=== PATIENT | male | born 2000 | race Caucasian/White ===

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

== ENCOUNTER 2020-01-16 18:44 | Emergency (ER) | payer SELFPAY ==
[~2020-01-16] VITALS: Ht 188 cm; Wt 61.6 kg
[2020-01-16 18:47] VITALS: BP 120/66
[2020-01-16] MEDS ORDERED: DEXAMETHASONE 4 MG TABLET PO STA (19:10)
[2020-01-16] MEDS ORDERED: DEXAMETHASONE 4 MG TABLET ONE (19:18)
== END 2020-01-16 19:34 | disposition home or self-care (01) ==
LOC: ED 19:00
DX: J02.0 Streptococcal pharyngitis (principal)
CPT/HCPCS: 99283

== ENCOUNTER 2021-05-16 01:01 | Emergency (ER) | payer MEDICAID ==
[~2021-05-16] VITALS: Ht 193 cm; Wt 60.1 kg
[2021-05-16] MEDS ORDERED: ONDANSETRON 2MG/ML, 2ML ONE (01:55)
[2021-05-16] MEDS ORDERED: KETOROLAC 30 MG/1 ML ONE (01:55)
[2021-05-16] MEDS ORDERED: KETOROLAC 30 MG/1 ML IVPush ONE (02:00)
[2021-05-16] MEDS ORDERED: SODIUM CHLORIDE 0.9% 1,000ML IVBOLUS ONE (02:00)
[2021-05-16] MEDS ORDERED: ONDANSETRON 2MG/ML, 2ML IVPush ONE (02:00)
--- NOTE | 2021-05-16 02:00 | NUR ---
PT C/O OF UPPER QUADRANT ABDOMINAL PAIN FOR LAST 4 DAYS WITH N/V/D PT ATTACHED TO MONITORS. VSS. NADN. NO CURRENT VOMITTING. BED IN POSITION, RAILS ENGAGED. CALL LIGHT ON LAP. [employer] AT BEDSIDE. FRIEND AT BEDSIDE. YAMEL
[2021-05-16 02:25] LABS: BASOPHILS % (AUTO) 0 % (0-1); EOSINOPHILS % (AUTO) 2 % (1-7); LYMPHOCYTES % (AUTO) 11 % (22-44); MEAN CORPUSCULAR HEMOGLOBIN 31.3 pg (27.5-34.5); MONOCYTES % (AUTO) 17 % (2-9); NEUTROPHILS % (AUTO) 70 % (42-75); PLATELET COUNT 229 x10^3/uL (130-400); RED CELL DISTRIBUTION WIDTH 13.1 % (9.4-14.8)
[2021-05-16 02:34] LABS: ALBUMIN 3.5 g/dL (3.4-5.0); ANION GAP 6 mmol/L (5-15); CALCIUM 8.3 mg/dL (8.5-10.1); CHLORIDE 105 mmol/L (98-107)
[2021-05-16 02:37] LABS: ALANINE AMINOTRANSFERASE 128 U/L (12-78); ALKALINE PHOSPHATASE 53 U/L (45-117); BILIRUBIN,TOTAL 0.7 mg/dL (0.2-1.0); CREATININE 0.84 mg/dL (0.7-1.3); TOTAL PROTEIN 6.8 g/dL (6.4-8.2)
[2021-05-16 02:52] VITALS: BP 92/44
--- NOTE | 2021-05-16 02:53 | NUR ---
Patient is sleeping comfortably in bed. eyes closed. Bed in lowest, rails engaged, call light on lap. Vital Signs within normal limits. WCTM.
--- NOTE | 2021-05-16 03:06 | NUR ---
PT AMBULATED TO BATHROOM AND BACK TO ROOM WITH STEADY GAIT.
--- NOTE | 2021-05-16 03:43 | NUR ---
F/U AND D/C INSTRUCTIONS WITH PRESCRIPTIONS GIVEN TO PT AND HE V/U. PIV REMOVED FROM RIGHT BICEP AND CATH TIP INTACT. PT AMBULATED TO D/C DESK.
== END 2021-05-16 03:46 | disposition home or self-care (01) ==
LOC: ED 03:42
DX: A09 Infectious gastroenteritis and colitis, unspecified (principal); R10.13 Epigastric pain; R11.2 Nausea with vomiting, unspecified; F17.200 Nicotine dependence, unspecified, uncomplicated
CPT/HCPCS: 36415; 80053; 83690; 85025; 96361; 96374; 96375; 99284; J1885; J2405; J7030